=== PATIENT | male | born 1955 | race Caucasian/White ===

== ENCOUNTER 2023-09-24 13:30 | Emergency (ER) | payer OTHER ==
[~2023-09-24] VITALS: Ht 182.9 cm; Wt 67.0 kg
[~2023-09-24 13:30] MED LIST: OXYCODONE HCL5 MG PO
--- OUTSIDE RECORDS SUMMARY | 2023-09-24 13:33 | XMS ---
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 Alicia VISIT COUNT (12 MO.) 2 ANGI Love TOTAL 3 NOTE: Visits indicate total known visits. ED/UCC VISIT TRACKING (12 MO.) 09/24/2023 13:31 [facility] TYPE: Emergency COMPLAINT: - DIARRHEA 06/17/2023 04:52 [facility] [place] TYPE: Emergency COMPLAINT: - CHEST AND HEAD PAIN DIAGNOSES: - Chest pain, unspecified - Malignant neoplasm of unspecified part of right bronchus or lung - Pneumonia, unspecified organism - Secondary malignant neoplasm of brain - Secondary malignant neoplasm of liver and intrahepatic bile duct 06/05/2023 17:41 [facility] TYPE: Emergency DIAGNOSES: - Pneumonia, unspecified organism INPATIENT VISIT TRACKING (12 MO.) 06/05/2023 17:41 [facility] TYPE: Medical Surgical DIAGNOSES: - Malignant neoplasm of unspecified part of unspecified bronchus or lung - Pneumonia, unspecified organism - Secondary malignant neoplasm of brain [email or web address]
[2023-09-24] MEDS ORDERED: LORAZEPAM1 MG (14:01)
[2023-09-24] MEDS ORDERED: BENZONATATE100 MG (14:01)
[2023-09-24] MEDS ORDERED: MEMANTINE HCL10 MG (14:02)
[2023-09-24] MEDS ORDERED: PANTOPRAZOLE SO40 MG (14:02)
[2023-09-24] MEDS ORDERED: DEXAMETHASONE4 MG (14:02)
[2023-09-24] MEDS ORDERED: LEVOTHYROXINE50 MCG (14:02)
[2023-09-24 14:28] LABS: HEMATOCRIT 23.1 % (35.0-50.0); HEMOGLOBIN 7.8 g/dL (12.0-18.0); MCH 32.4 (27-36); MCHC 33.9 g/dl (30-36); MCV 95.6 fl (81-99); PLATELET COUNT 73 K/uL (140-440); RBC 2.41 M/ul (4.3-5.7); RDW 17.6 (10.5-15.0)
[2023-09-24 14:33] LABS: ALBUMIN 2.5 g/dL (3.4-5.0); ALBUMIN/GLOBULIN RATIO 0.64 (1.1-2.4); ANION GAP 18.9 (7-21); BILIRUBIN, TOTAL 0.7 ng/dL (0.2-1.0); BUN/CREATININE RATIO 17.74 (6.0-28.6); CALCIUM 8.8 mg/dL (8.5-10.1); CREATININE, SERUM 1.24 mg/dL (0.70-1.30); POTASSIUM 3.9 mmol/L (3.5-5.1); PROTEIN, TOTAL 6.4 g/dL (6.4-8.2)
[2023-09-24 15:04] LABS: BANDS, MANUAL DIFF 18; BASOPHILS, MANUAL DIFF 2; EOSINOPHILS, MANUAL DIFF 2; LYMPHOCYTES, MANUAL DIFF 44; MONOCYTES, MANUAL DIFF 4; NEUTROPHILS, MANUAL DIFF 30
[2023-09-24 16:48] VITALS: BP 118/86
== END 2023-09-24 16:48 | disposition home or self-care (01) ==
LOC: ED 13:30
PROVIDERS: Emergency Medicine
DX: E83.42 Hypomagnesemia (principal); E86.0 Dehydration; C34.90 Malignant neoplasm of unspecified part of unspecified bronchus or lung; C78.7 Secondary malignant neoplasm of liver and intrahepatic bile duct; C79.31 Secondary malignant neoplasm of brain; Z79.890 Hormone replacement therapy; Z79.899 Other long term (current) drug therapy
CPT/HCPCS: 36415; 80053; 83735; 85025; J3475; J7030